=== PATIENT | male | born 1985 | race Two or more races ===

== ENCOUNTER 2016-08-06 16:34 | Emergency (ER) | payer OTHER ==
[2016-08-06 16:39] VITALS: BP 102/64; PULSE 69; TEMP 98.4; BMI 28.3
[2016-08-06] MEDS ORDERED: DIPHTH,PERTUSS(ACELL),TET 0.5 ML DISP.SYRIN IM ONE (16:57)
--- NOTE | 2016-08-06 17:02 | PDOC ---
History of Present Illness - General Chief Complaint: Injury Stated Complaint: LACERATION Time Seen by Provider: 08/06/16 16:53 History Source: Patient Exam Limitations: No Limitations - History of Present Illness Initial Comments: 08/06/16 16:58 CHIEF COMPLAINT: Left fourth finger laceration to pad HISTORY OF PRESENT ILLNESS: She is a 31-year-old male denies any significant medical history currently on no medication, tetanus greater than 5 years. Patient reports using a mercury washer sustained a laceration to the pad of the left fourth finger. No active bleeding. Good range of motion. Timing/Duration: reports: just prior to arrival Severity: Yes: moderate Location: reports: hands Respiratory Risk Factors: reports: no cause identified Past History - Past Medical History Allergies/Adverse Reactions: Allergies Allergy/AdvReac Type Severity Reaction Status Date / Time No Known Allergies Allergy Verified 08/06/16 16:39 Home Medications: Ambulatory Orders Cephalexin [Keflex] 500 mg PO TID #15 capsule 08/06/16 Oxycodone HCl/Acetaminophen [Percocet 5-325 mg Tablet] 1 tab PO Q6H #8 tablet MDD 4 08/06/16 - Psycho/Social/Smoking Cessation Hx Suicidal Ideation: No Smoking History: Never smoked Review of Systems - Review of Systems Constitutional: No: Symptoms Reported HEENTM: No: Symptoms Reported Respiratory: No: Symptoms reported Cardiac (ROS): No: Symptoms Reported ABD/GI: No: Symptoms Reported : No: Symptoms Reported Musculoskeletal: No: Joint Pain, Joint Swelling, Joint Stiffness Integumentary: Yes: Other (2 cm laceration to the pad of the left fourth finger) Neurological: No: Symptoms reported Hematologic/Lymphatic: No: Symptoms Reported All Other Systems: Reviewed and Negative *Physical Exam - Vital Signs Last Vital Signs Temp Pulse Resp BP Pulse Ox 98.4 F 69 18 102/64 9 L 08/06/16 16:38 08/06/16 16:38 08/06/16 16:38 08/06/16 16:38 08/06/16 16:38 - Physical Exam General Appearance: Yes: Appropriately Dressed. No: Apparent Distress Respiratory/Chest: positive: Lungs Clear Musculoskeletal: positive: Normal Inspection Extremity: positive: Normal Capillary Refill, Normal Inspection, Normal Range of Motion, Tender, Swelling, Inflammation. negative: Erythema Integumentary: positive: Swelling, Other (2 cm laceration to the pad of the left fourth finger) Neurologic: positive: Alert, Normal Mood/Affect Procedures - Laceration/Wound Repair Finger Wound Length: 2.6 to 5.0 cm Wound Explored: clean Wound's Depth, Shape: linear Irrigated w/ Saline: Yes Betadine Prep: Yes Anesthesia: 1% Lidocaine (digital block with good result) Amount of Anesthetic (ccs): 6 Wound Repaired With: Sutures Suture Size/Type: 5:0 Number of Sutures: 6 Layer Closure: No Progress: 08/06/16 17:00 Medical Decision Making - Medical Decision Making 08/06/16 17:00 A/P: Patient with laceration to left fourth finger see procedure note. Follow- up as instructed. Boostrix ordered 08/06/16 17:36 *DC/Admit/Observation/Transfer Diagnosis at time of Disposition: Finger laceration Qualifiers: Encounter type: initial encounter Finger: ring finger Damage to nail status: without damage Foreign body presence: without foreign body Laterality: left Qualified Code(s): S61.215A - Laceration without foreign body of left ring finger without damage to nail, initial encounter - Discharge Dispostion Disposition: HOME Condition at time of disposition: Good Admit: No - Prescriptions Prescriptions: Cephalexin [Keflex] 500 mg PO TID #15 capsule Oxycodone HCl/Acetaminophen [Percocet 5-325 mg Tablet] 1 tab PO Q6H #8 tablet MDD 4 - Referrals Referrals: Stanley Oscar MD [Staff Physician] - - Patient Instructions Additional Instructions: Motrin for pain Keep area clean dry and intact Keep dressing on until tomorrow Then cover with dry bandaid for 24 hours. If any increased bleeding through the dressing return immediately to emergency department Keep area clean dry and intact bacitracin x3 days after the initial day of drying out Please return in 10 days for suture removal. Please return immediately to emergency department with any increased redness, swelling, signs of infection - Post Discharge Activity Work/School Note: Back to Work
== END 2016-08-06 17:54 | disposition home or self-care (01) ==
LOC: JERFT 16:34
PROC: 0HQGXZZ Repair Left Hand Skin, External Approach (ICD-10-PCS; principal; 2016-08-06)
DX: S61.215A Laceration without foreign body of left ring finger without damage to nail, initial encounter (principal); W31.89XA Contact with other specified machinery, initial encounter; Y93.89 Activity, other specified; Y92.9 Unspecified place or not applicable; Y99.0 Civilian activity done for income or pay
CPT/HCPCS: 90715; 99281-25

== ENCOUNTER 2021-06-24 14:32 | Emergency (ER) | payer OTHER ==
[2021-06-24 15:17] VITALS: BP 121/76; PULSE 74; TEMP 98; BMI 31.8
== END 2021-06-24 15:44 | disposition home or self-care (01) ==
LOC: JERFT 14:32
DX: L03.115 Cellulitis of right lower limb (principal)
CPT/HCPCS: 87070; 87186; 87205; 99281-25

== ENCOUNTER 2022-07-21 07:48 | Emergency (ER) | payer OTHER ==
[2022-07-21 07:56] VITALS: BMI 30.9
[2022-07-21] MEDS ORDERED: HYDROmorphone HCl 2 MG/ML VIAL IVPUSH ONE (08:04)
[2022-07-21] MEDS ORDERED: HYDROmorphone HCl 2 MG/ML VIAL ONE (08:12)
[2022-07-21] MEDS ORDERED: morphine CARPU-JECT 4 MG/1 ML DISP.SYRIN IVPUSH ONE ×2 (09:48→11:46)
[2022-07-21] MEDS ORDERED: DIPHTH,PERTUSS(ACELL),TET 0.5 ML DISP.SYRIN IM ONE ×2 (09:53→09:55)
[2022-07-21] MEDS ORDERED: morphine SULFATE 4 MG/ML VIAL ONE ×2 (09:55→11:49)
[2022-07-21] MEDS ORDERED: ACETAMINOPHEN 1000 MG/100 ML BAG IVPB ONE (11:47)
[2022-07-21] MEDS ORDERED: ACETAMINOPHEN INJECTION 100 ML IVPB ONE (11:49)
[2022-07-21 13:11] VITALS: BP 124/76; PULSE 86; RESP 20; TEMP 98.2
== END 2022-07-21 13:38 | disposition home or self-care (01) ==
LOC: JER 07:48
PROC: 3E033NZ Introduction of Analgesics, Hypnotics, Sedatives into Peripheral Vein, Percutaneous Approach (ICD-10-PCS; principal; 2022-07-21)
PROC: 3E033GC Introduction of Other Therapeutic Substance into Peripheral Vein, Percutaneous Approach (ICD-10-PCS; 2022-07-21)
PROC: 3E033GC Introduction of Other Therapeutic Substance into Peripheral Vein, Percutaneous Approach (ICD-10-PCS; 2022-07-21)
PROC: 3E033GC Introduction of Other Therapeutic Substance into Peripheral Vein, Percutaneous Approach (ICD-10-PCS; 2022-07-21)
PROC: 3E0234Z Introduction of Serum, Toxoid and Vaccine into Muscle, Percutaneous Approach (ICD-10-PCS; 2022-07-21)
DX: M25.532 Pain in left wrist (principal); M25.522 Pain in left elbow; S52.502A Unspecified fracture of the lower end of left radius, initial encounter for closed fracture; V00.838A Other accident with motorized mobility scooter, initial encounter; Y93.55 Activity, bike riding
CPT/HCPCS: 70450-TC; 71045-TC-FY; 72125-TC; 73030-TC-LT-FY; 73060-TC-LT-FY; 73070-TC-LT-FY; 73090-TC-LT-FY; 73110-TC-LT-FY; 73130-TC-LT-FY; 82962; 90471; 90715; 93005; 93010; 96374; 96375; 96376; 99284-25